=== PATIENT | female | born 1935 | race Caucasian/White ===

== ENCOUNTER 2019-06-24 13:08 | Inpatient (IN) ==
[2019-06-24] MEDS ORDERED: SODIUM CHLORIDE 0.9% 500 ML IV SCH (13:30)
--- NOTE | 2019-06-24 13:38 | Emergency Department Note ---
Impression & Plan Syncope, Acute UTI, Closed rib fracture, Pleural effusion ED Provider Note NAME: JONATHAN LYNN AGE: 83 SEX: F : 1935 ARRIVES VIA: Ambulance INFORMANT: Patient, ED PROVIDER(S): Hernan Bell DO CHIEF COMPLAINT: Neck pain, weak and falls HPI: Patient is an 83-year-old female that presents the ER for progressive weakness which has been going on since August. She had a fall back in mid May and since then has been having right lower rib pain. She notes she fell this past Monday and Monday. She has been extremely weak. She passed out during 2 of these falls. She denies any chest pain but admits to pain with taking a deep breath on the right lower ribs. Patient also complains of persistent neck pain which has been present since the fall on Monday. She also complains of a headache as well. Denies any change in vision or focal weakness in the arms or legs. No other exacerbating or remitting factors. ROS: See above HPI for pertinent positives & negatives. A total of 10 systems reviewed and were otherwise negative. PAST MEDICAL HISTORY:See Below PAST SURGICAL HISTORY:See Below FAMILY HISTORY:See Below SOCIAL HISTORY:See Below HOME MEDICATIONS:See Below ALLERGIES:See Below VITALS:See Below PHYSICAL EXAMINATION: GENERAL: GENERAL: Sitting up in bed, disheveled, cachectic HEAD: normal cephalic, atraumatic EYE EXAM: normal conjunctiva, PERRL and EOM's grossly intact OROPHARYNX: no exudate, no erythema, lips, buccal mucosa, and tongue normal and mucous membranes are moist EARS: TMs clear b/l NECK: midline tenderness CHEST: stable to compression anteriorly and posteriorly LUNGS: clear to auscultation. Normal chest wall mechanics CHEST: R lower chest wall pain HEART: S1 normal and S2 normal ABDOMEN: abdomen soft, non-tender, normo-active bowel sounds, no masses, no rebound or guarding. PELVIS: stable to compression anteriorly and posteriorly BACK: Back is symmetrical on inspection and there is no deformity, no midline tenderness, no CVA tenderness. UPPER EXTREMITIES: full active and passive range of motion of all joints without tenderness to palpation LOWER EXTREMITIES: full active and passive range of motion of all joints without tenderness to palpation NEURO EXAM: Normal sensorium, cranial nerves II-XII grossly intact, normal speech, no gross weakness of arms, no gross weakness of legs. GCS: 15. MEDICAL DECISION MAKING: Patient is an 83-year-old female who presents the ER for syncopal episodes associated with headache and neck pain associate with persistent right-sided rib pain. IV was established blood work was obtained and showed a mild leukocytosis. Hemoglobin 11.1 consistent with previous. BMP with a creatinine 1.4. Magnesium slightly low at 1.7. LFTs bilirubin troponin was negative. TSH unremarkable. D-dimer was elevated. UA does suggest a UTI although slightly contaminated with epithelial cells. Patient was given IV fluids and IV Rocephin. She was also given a dose of IV morphine. CT Angio of the chest shows rib fractures with a pleural effusion. Patient was updated bedside. CT of the head and neck was negative. She was discussed with the hospitalist for admission for syncope associated with rib fractures and weakness. Triage Nursing notes reviewed. Prior medical records reviewed Vital Signs: reviewed and remarkable for hypertension Differential diagnosis: Differential diagnosis includes etiologies such as vasovagal event, infection, hypoglycemia, electrolyte abnormalities, cardiac sources, intracerebral event, toxicologic, neurologic, as well as others were entertained. ER treatment provided: See below Diagnostics interpreted by me: ECG: Sinus rhythm rate of 72 Normal axis PACs present Normal QTC T wave flattening in aVL Cardiac Monitoring: Sinus rhythm rate 81 Laboratory studies: As stated above and show below. Imaging studies: CT of the head and cervical spine showed no acute fractures. CT angios the chest shows rib fractures with pleural effusion. Consultation(s): Discussed with Dr. 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 Beliefs That Will Affect Care: None marital status: Current Living Situation: Alone current occupational status: retired Other Information That Helps Us Care for You: No Feels Safe at Home: Yes Safety Concerns: Feels Safe At This Time Smoking Status: Never smoker Second Hand Exposure: No ; Hx Alcohol Use: No Hx Substance Use: No Childhood Exposure to Second-Hand Smoke: No Diet Comment: regular caffeine: No during the past year weight has: remained stable Dental Care, Regularly: Yes Physical Activity Frequency: 1-2 Times per Week Seatbelt Use: always Sunscreen Use: Yes Allergies Allergies Allergy/AdvReac Type Severity Reaction Status Date / Time atorvastatin Allergy muscle Verified 06/24/19 14:24 aches. sulfamethoxazole AdvReac Intermediate Rash Verified 06/24/19 14:24 [From Bactrim] trimethoprim [From Bactrim] AdvReac Intermediate Rash Verified 06/24/19 14:24 Actonel TABS Allergy Unknown Unknown Uncoded 06/24/19 14:24 Bactrim Allergy Unknown Unknown Uncoded 06/24/19 14:24 Evista TABS Allergy Unknown Unknown Uncoded 06/24/19 14:24 traMADol HCl TABS AdvReac Unknown N/V Uncoded 06/24/19 14:24 Home Meds Home Medications Medication Instructions Recorded Confirmed multivitamin 1 cap PO QAM 01/05/18 06/24/19 omega-3 acid ethyl esters 1 gram 1 cap PO BID cap 09/06/18 06/24/19 capsule cholecalciferol (vitamin D3) 25 2,000 units PO WEEKLY cap 02/18/19 06/24/19 mcg (1,000 unit) capsule cyanocobalamin (vitamin B-12) 500 500 mcg PO 2XWK tab 04/16/19 06/24/19 mcg tablet [id number] acid-lutein 2 tab PO AMPM 06/17/19 06/24/19 [Essential Woman 50+] Previous Rx's Medication Instructions Recorded levothyroxine 75 mcg tablet 75 mcg PO QAM #90 tab 03/26/19 diclofenac sodium 1 % topical gel 2 gm TOP QID #100 gm 04/02/19 lisinopril 20 1 tab PO QAM #30 tab 04/09/19 mg-hydrochlorothiazide 25 mg tablet escitalopram oxalate 10 mg tablet 10 mg PO DAILY #90 tab 04/30/19 metformin 500 mg tablet 500 mg PO BID #180 tab 04/30/19 Results & Data (ED) Vital Signs Vital Signs - 24 hr 06/24/19 13:14 06/24/19 13:18 06/24/19 13:20 Temperature Temperature Source Pulse Rate 74 77 76 Pulse Rate from SpO2 Sensor 77 79 76 Pulse Rhythm Pulse Strength Respiratory Rate 14 19 15 Respiratory Effort / Characteristics Respiratory Depth Respiratory Pattern Blood Pressure 155/70 H Blood Pressure Mean 103 Blood Pressure Position Pulse Oximetry 94 94 95 Oxygen Delivery Method Sepsis Recent Fever Within 48 Hours Sepsis New/Unexplained Change in Mental Status Sepsis Action Taken by Nursing 06/24/19 13:25 06/24/19 13:30 06/24/19 13:40 Temperature 36.8 C Temperature Source Oral Pulse Rate 74 74 70 Pulse Rate from SpO2 Sensor 75 72 Pulse Rhythm Regular Pulse Strength Normal Respiratory Rate 20 15 24 Respiratory Effort / Characteristics Non-Labored Spontaneous Respiratory Depth Normal Respiratory Pattern Regular Blood Pressure 155/70 H Blood Pressure Mean 98 Blood Pressure Position Sitting Pulse Oximetry 98 95 95 Oxygen Delivery Method Room Air Room Air Sepsis Recent Fever Within 48 Hours No Sepsis New/Unexplained Change in Mental Status No Sepsis Action Taken by Nursing No Action Required 06/24/19 13:50 06/24/19 14:01 06/24/19 14:02 Temperature Temperature Source Pulse Rate 77 71 76 Pulse Rate from SpO2 Sensor 72 74 Pulse Rhythm Pulse Strength Respiratory Rate 21 14 15 Respiratory Effort / Characteristics Respiratory Depth Respiratory Pattern Blood Pressure 146/64 H Blood Pressure Mean 117 Blood Pressure Position Pulse Oximetry 94 94 Oxygen Delivery Method Sepsis Recent Fever Within 48 Hours Sepsis New/Unexplained Change in Mental Status Sepsis Action Taken by Nursing 06/24/19 14:10 06/24/19 14:20 06/24/19 14:30 Temperature Temperature Source Pulse Rate 74 74 73 Pulse Rate from SpO2 Sensor 71 76 77 Pulse Rhythm Pulse Strength Respiratory Rate 15 15 17 Respiratory Effort / Characteristics Respiratory Depth Respiratory Pattern Blood Pressure Blood Pressure Mean Blood Pressure Position Pulse Oximetry 94 94 94 Oxygen Delivery Method Sepsis Recent Fever Within 48 Hours Sepsis New/Unexplained Change in Mental Status Sepsis Action Taken by Nursing 06/24/19 14:40 06/24/19 14:50 06/24/19 15:00 Temperature Temperature Source Pulse Rate 72 79 73 Pulse Rate from SpO2 Sensor 73 77 75 Pulse Rhythm Pulse Strength Respiratory Rate 17 20 16 Respiratory Effort / Characteristics Respiratory Depth Respiratory Pattern Blood Pressure Blood Pressure Mean Blood Pressure Position Pulse Oximetry 96 96 96 Oxygen Delivery Method Sepsis Recent Fever Within 48 Hours Sepsis New/Unexplained Change in Mental Status Sepsis Action Taken by Nursing 06/24/19 15:17 06/24/19 15:20 06/24/19 15:30 Temperature Temperature Source Pulse Rate 81 75 80 Pulse Rate from SpO2 Sensor 81 82 80 Pulse Rhythm Pulse Strength Respiratory Rate 18 15 18 Respiratory Effort / Characteristics Respiratory Depth Respiratory Pattern Blood Pressure Blood Pressure Mean Blood Pressure Position Pulse Oximetry 95 94 95 Oxygen Delivery Method Sepsis Recent Fever Within 48 Hours Sepsis New/Unexplained Change in Mental Status Sepsis Action Taken by Nursing 06/24/19 15:31 06/24/19 15:47 06/24/19 15:50 Temperature Temperature Source Pulse Rate 79 82 73 Pulse Rate from SpO2 Sensor 74 81 73 Pulse Rhythm Pulse Strength Respiratory Rate 21 22 16 Respiratory Effort / Characteristics Respiratory Depth Respiratory Pattern Blood Pressure 152/66 H Blood Pressure Mean 101 Blood Pressure Position Pulse Oximetry 96 95 96 Oxygen Delivery Method Sepsis Recent Fever Within 48 Hours Sepsis New/Unexplained Change in Mental Status Sepsis Action Taken by Nursing Laboratory Data Result diagrams: 06/24/19 13:20 06/24/19 13:20 Lab Results 06/24/19 06/24/19 06/24/19 Range/Units 13: 13: 13:20 WBC 12.08 H (4.8-10.8) K/uL RBC 3.43 L (4.2-5.4) M/uL Hgb 11.1 L (12.0-16.0) g/dL Hct 32.8 L (37-47) % MCV 95.6 (80-100) fL MCH 32.4 (25-34) pg MCHC 33.8 (32-36) g/dL RDW Std Deviation 46.2 (36.4-46.3) fL RDW Coeff of Frances 13.2 (11.5-14.5) % Plt Count 679 H (130-400) K/uL MPV 8.6 (7.4-10.4) fL Immature Gran % (Auto) 0.2 % Neut % (Auto) 69.5 % Lymph % (Auto) 16.5 % [place] % (Auto) 12.9 % Eos % (Auto) 0.7 % Baso % (Auto) 0.2 % Immature Gran # (Auto) 0.03 H (0.00-0.02) K/uL Neut # (Auto) 8.38 H (1.4-6.5) K/uL Lymph # (Auto) 1.99 (1.2-3.4) K/uL [place] # (Auto) 1.56 H (0.11-0.59) K/uL Eos # (Auto) 0.09 (0-0.5) K/uL Baso # (Auto) 0.03 (0-0.2) K/uL PT 11.4 (9.0-12.0) Seconds INR 1.1 (0.9-1.1) D-Dimer 1200 H* (0-500) ug/L FEU Sodium 135 L (136-145) mmol/L Potassium 3.6 (3.5-5.1) mmol/L Chloride 99 (98-107) mmol/L Carbon Dioxide 28 (21-32) mmol/L Anion Gap 8.0 (3-11) BUN 35 H (7-18) mg/dl Creatinine 1.40 H (0.6-1.2) mg/dl Est Cr Clr Drug Dosing Not Reportable Est GFR ( Amer) 39.6 Est GFR (Non-Af Amer) 34.2 BUN/Creatinine Ratio 24.8 H (10-20) Glucose 130 H (70-99) mg/dl Calcium 9.7 (8.5-10.1) mg/dl Magnesium 1.7 L (1.8-2.4) mg/dl Total Bilirubin 0.4 (0.2-1) mg/dl AST 23 (15-37) U/L ALT 22 (12-78) U/L Alkaline Phosphatase 88 (45-117) U/L Total Creatine Kinase 66 (26-192) U/L Troponin I < 0.015 (0-0.045) ng/ml Total Protein 7.5 (6.4-8.2) gm/dl Albumin 3.0 L (3.4-5.0) gm/dl Globulin 4.5 H (2.5-4.0) gm/dl Albumin/Globulin Ratio 0.7 L (0.9-2) TSH 0.900 (0.300-4.500) uIu/ml Urine Color Urine Appearance (Clear) Urine pH (4.5-7.5) Ur Specific [place] (1.000-1.030) Urine Protein (Negative) Urine Glucose (UA) (Negative) Urine Ketones (Negative) Urine Blood (Negative) Urine Nitrite (Negative) Urine Bilirubin (Negative) Urine Urobilinogen (Negative) Ur Leukocyte Esterase (Negative) Urine WBC (Auto) (0-5) /hpf Urine RBC (Auto) (0-4) /hpf U Hyaline Cast (Auto) (0-5) /lpf U Epithel Cells (Auto) (0-5) /lpf Urine Bacteria (Auto) (Negative) 06/24/19 Range/Units 15:50 WBC (4.8-10.8) K/uL RBC (4.2-5.4) M/uL Hgb (12.0-16.0) g/dL Hct (37-47) % MCV (80-100) fL MCH (25-34) pg MCHC (32-36) g/dL RDW Std Deviation (36.4-46.3) fL RDW Coeff of Rfances (11.5-14.5) % Plt Count (130-400) K/uL MPV (7.4-10.4) fL Immature Gran % (Auto) % Neut % (Auto) % Lymph % (Auto) % [place] % (Auto) % Eos % (Auto) % Baso % (Auto) % Immature Gran # (Auto) (0.00-0.02) K/uL Neut # (Auto) (1.4-6.5) K/uL Lymph # (Auto) (1.2-3.4) K/uL [place] # (Auto) (0.11-0.59) K/uL Eos # (Auto) (0-0.5) K/uL Baso # (Auto) (0-0.2) K/uL PT (9.0-12.0) Seconds INR (0.9-1.1) D-Dimer (0-500) ug/L FEU Sodium (136-145) mmol/L Potassium (3.5-5.1) mmol/L Chloride (98-107) mmol/L Carbon Dioxide (21-32) mmol/L Anion Gap (3-11) BUN (7-18) mg/dl Creatinine (0.6-1.2) mg/dl Est Cr Clr Drug Dosing Est GFR ( Amer) Est GFR (Non-Af Amer) BUN/Creatinine Ratio (10-20) Glucose (70-99) mg/dl Calcium (8.5-10.1) mg/dl Magnesium (1.8-2.4) mg/dl Total Bilirubin (0.2-1) mg/dl AST (15-37) U/L ALT (12-78) U/L Alkaline Phosphatase (45-117) U/L Total Creatine Kinase (26-192) U/L Troponin I (0-0.045) ng/ml Total Protein (6.4-8.2) gm/dl Albumin (3.4-5.0) gm/dl Globulin (2.5-4.0) gm/dl Albumin/Globulin Ratio (0.9-2) TSH (0.300-4.500) uIu/ml Urine Color Yellow Urine Appearance Clear (Clear) Urine pH 5.0 (4.5-7.5) Ur Specific [place] 1.022 (1.000-1.030) Urine Protein Negative (Negative) Urine Glucose (UA) Negative (Negative) Urine Ketones Trace H (Negative) Urine Blood Negative (Negative) Urine Nitrite Positive A (Negative) Urine Bilirubin Negative (Negative) Urine Urobilinogen Negative (Negative) Ur Leukocyte Esterase 1+ H (Negative) Urine WBC (Auto) 10-30 H (0-5) /hpf Urine RBC (Auto) 0-4 (0-4) /hpf U Hyaline Cast (Auto) 1-5 (0-5) /lpf U Epithel Cells (Auto) 20-30 H (0-5) /lpf Urine Bacteria (Auto) 4+ H (Negative) Administered Medications Ioversol (Optiray 320 125ml) 119 ml IV ONCE PRN PRN Reason: Interaction Checking Stop: 06/28/19 15:08 Last Admin: 06/24/19 15:09 Dose: 119 ml Documented by: [id number] Discontinued Medications Sodium Chloride (Nss) 500 mls @ 999 mls/hr IV .Q31M ROSY Stop: 06/24/19 14:00 Last Infusion: 06/24/19 14:40 Dose: 0 mls/hr Documented by: [id number] Admin: 06/24/19 13:43 Dose: 999 mls/hr Documented by: [id number] Discharge Plan Visit Data Chief Complaint: Weakness Stated Complaint: abd/ fall/neck pain ED Provider: Hernan Bell Discharge Problem: Syncope, Acute UTI, Closed rib fracture, Pleural effusion Forms Stand Alone Forms: [facility] [employer] Prescriptions Prescriptions: No Action diclofenac sodium 1 % gel 2 gm TOP QID Qty: 100 RF: 1 lisinopril-hydrochlorothiazide 20-25 mg tablet 1 tab PO QAM Qty: 30 RF: 0 omega-3 acid ethyl esters 1 gram capsule 1 cap PO BID RF: 0 cholecalciferol (vitamin D3) [Vitamin D3] 25 mcg (1,000 unit) capsule 2,000 units PO WEEKLY RF: 0 metformin 500 mg tablet 500 mg PO BID Qty: 180 RF: 3 escitalopram oxalate 10 mg tablet 10 mg PO DAILY Qty: 90 RF: 1 levothyroxine 75 mcg tablet 75 mcg PO QAM Qty: 90 RF: 1 multivitamin Capsule 1 cap PO QAM RF: 0 cyanocobalamin (vitamin B-12) 500 mcg tablet 500 mcg PO 2XWK RF: 0 Essential Woman 50+ 0.4-250 mg-mcg Tablet 2 tab PO AMPM RF: 0 Discharge Problem: Syncope Qualifiers: Syncope type: unspecified Qualified Code(s): R55 - Syncope and collapse Closed rib fracture Qualifiers: Encounter type: initial encounter Rib fracture type: multiple ribs Laterality: right Qualified Code(s): S22.41XA - Multiple fractures of ribs, right side, initial encounter for closed fracture
--- NOTE | 2019-06-24 13:56 | XRay Report ---
XR chest 1V portable HISTORY: weakness COMPARISON: Chest 06/17/2019. FINDINGS: No pneumothorax. No pleural effusions. The heart is normal in size. The left lung is essent ially clear. Linear densities within the right mid to lower lung zone favor subsegmental atelectasis. Eventration of right hemidiaphragm persists. Surgical clips within the right axilla. IMPRESSION: 1. Linear densities within the right mid to lower lung zone favor subsegmental atelectasis. 2. Chronic eventration of the right hemidiaphragm. ACT 112: Negative or not required by law. Electronically signed by: Ron Dooley M.D. 06/24/2019 1:55 PM
--- NOTE | 2019-06-24 14:04 | CT Scan Report ---
CT SCAN OF THE BRAIN WITHOUT IV CONTRAST CLINICAL HISTORY: Fall. COMPARISON STUDY: No priors. TECHNIQUE: Unenhanced axial CT scan of the brain is performed from the vertex to the skull base. A do se lowering technique was utilized adhering to the principles of ALARA. CT DOSE: 831.60 mGy.cm FINDINGS: Brain parenchyma: There are age-related involutional changes noting advanced confluent subcortical a nd periventricular microangiopathic change. There is no hemorrhage, mass effect, or evidence of acute territorial ischemia by CT criteria. A chronic lacunar infarct is noted in the right cerebellar anders sphere. Mota-white matter differentiation is preserved. No extra-axial fluid collection is seen. Ventricles, sulci, cisterns: Prominent secondary to involutional change. Intracranial vasculature: There is atherosclerotic calcification of the cavernous carotid arteries. Calvarium: Skeletal structures are osteopenic. No depressed calvarial fracture is identified. Sinuses and mastoids: The visualized paranasal sinuses are clear. The mastoid air cells are well pneu matized. Orbits: The bony orbits are grossly intact. There are bilateral ocular lens implants. IMPRESSION: There is no hemorrhage, mass effect, or evidence of acute territorial ischemia by CT hiren dodd. ACT 112: Negative or not required by law. Electronically signed by: Fahad Prater M.D. 06/24/2019 2:03 PM
--- NOTE | 2019-06-24 14:07 | Electrocardiogram Report ---
Test Reason : Blood Pressure : / mmHG Vent. Rate : 072 BPM Atrial Rate : 072 BPM P-R Int : 178 ms QRS Dur : 072 ms QT Int : 422 ms P-R-T Axes : 056 -16 070 degrees QTc Int : 462 ms Sinus rhythm with Premature atrial complexes in a pattern of bigeminy Nonspecific ST abnormality Abnormal ECG When compared with ECG of 17-JUN-2019 17:29, No significant change was found Confirmed by Cole Alonso ([id number]) on 06/24/2019 2:06:38 PM Referred By: Confirmed By:Cole Alonso
[2019-06-24 14:08] LABS: Basophils # (auto) 0.03 K/uL (0-0.2); Basophils % (auto) 0.2 %; Eosinophils # (auto) 0.09 K/uL (0-0.5); Eosinophils % (auto) 0.7 %; Hematocrit (blood only) 32.8 % (37-47); Hemoglobin 11.1 g/dL (12.0-16.0); Immature Granulocytes # (auto) 0.03 K/uL (0.00-0.02); Immature Granulocytes % (auto) 0.2 %; Lymphocytes # (auto) 1.99 K/uL (1.2-3.4); Lymphocytes % (auto) 16.5 %; Mean Corpuscular Hemoglobin 32.4 pg (25-34); Mean Corpuscular Hgb Conc 33.8 g/dL (32-36); Mean Corpuscular Volume 95.6 fL (80-100); Mean Platelet Volume 8.6 fL (7.4-10.4); Monocytes # (auto) 1.56 K/uL (0.11-0.59); Monocytes % (auto) 12.9 %; Neutrophils # (auto) 8.38 K/uL (1.4-6.5); Neutrophils % (auto) 69.5 %; Platelet Count 679 K/uL (130-400); RDW Coefficient of Variation 13.2 % (11.5-14.5); RDW Standard Deviation 46.2 fL (36.4-46.3); Red Blood Count 3.43 M/uL (4.2-5.4); White Blood Count 12.08 K/uL (4.8-10.8)
--- NOTE | 2019-06-24 14:08 | CT Scan Report ---
CT SCAN OF THE CERVICAL SPINE CLINICAL HISTORY: Fall. COMPARISON STUDY: No priors. TECHNIQUE: CT scan of the cervical spine is performed from the skull base to the upper thoracic spine . Images are reviewed in the axial, sagittal, and coronal planes. IV contrast was not administered fo r this examination. A dose lowering technique was utilized adhering to the principles of ALARA. FINDINGS: Skeletal structures: The skeletal structures are osteopenic. There is no evidence of fracture or subl uxation involving the cervical spine. Vertebral body height is maintained. There is minimal anterolis thesis at C7-T1. Alignment is otherwise preserved. Anterior osteophytes are seen throughout. The odon toid process and lateral masses are intact. The atlantoaxial articulation is preserved noting product jean degenerative change. The spinous processes appear intact. There is moderate to advanced multileve l cervical spondylosis. Uncovertebral and facet arthropathy contribute to neural foraminal stenosis a t most levels. Intervertebral discs: There is moderate to advanced disc space narrowing seen at all cervical levels. This is greatest at C3-C4, C5-C6, and C6-C7. Central canal: Posterior disc osteophyte complexes from C3-C4 through C6-C7 likely contribute to mult ilevel acquired compromise of the central canal. Soft tissues: The prevertebral and paraspinous soft tissues are within normal limits. There is athero sclerotic calcification of the carotid bulbs. Calvarium: The visualized calvarium at the skull base appears intact. Brain parenchyma: Partially visualized brain parenchyma the skull base is within normal limits. Sinuses and mastoids: There is mild mucosal thickening in the right sphenoid sinus. The mastoid air c ells are well pneumatized. Lung apices: Clear as visualized. IMPRESSION: 1. There is no evidence of fracture or subluxation involving the cervical spine. 2. Osteopenia and spondylotic change as above. ACT 112: Negative or not required by law. Electronically signed by: Fahad Prater M.D. 06/24/2019 2:07 PM
[2019-06-24 14:14] LABS: Alanine Aminotransferase 22 U/L (12-78); Aspartate Aminotransferase 23 U/L (15-37); BUN Creatinine Ratio 24.8 (10-20); Blood Urea Nitrogen 35 mg/dl (7-18); Calcium 9.7 mg/dl (8.5-10.1); Carbon Dioxide 28 mmol/L (21-32); Chloride 99 mmol/L (98-107); Est GFR (African American) 39.6; Est GFR (Non-African American) 34.2; Glucose 130 mg/dl (70-99); Magnesium 1.7 mg/dl (1.8-2.4); Potassium 3.6 mmol/L (3.5-5.1); Sodium 135 mmol/L (136-145)
[2019-06-24 14:25] LABS: Albumin Globulin Ratio 0.7 (0.9-2); Alkaline Phosphatase 88 U/L (45-117); Bilirubin,Total 0.4 mg/dl (0.2-1); Creatine Kinase 66 U/L (26-192); Globulin 4.5 gm/dl (2.5-4.0); INR 1.1 (0.9-1.1); Prothrombin Time 11.4 Seconds (9.0-12.0); Total Protein 7.5 gm/dl (6.4-8.2); Troponin I < 0.015 ng/ml (0-0.045)
[2019-06-24 14:30] LABS: D Dimer 1200 ug/L FEU (0-500)
[2019-06-24] MEDS ORDERED: OPTIRAY 320 125ml IV PRN (15:09)
--- NOTE | 2019-06-24 15:37 | CT Scan Report ---
CHEST CTA for PULMONARY ARTERIES CT DOSE: 234.94 mGy.cm HISTORY: Shortness of breath. TECHNIQUE: Multiaxial CT images of the chest were performed following the intravenous administration of contrast to evaluate the pulmonary arteries. Maximal intensity projection images were also obtaine d. A dose lowering technique was utilized adhering to the principles of ALARA. COMPARISON STUDY: PET CT 02/28/2018. FINDINGS: Normal caliber thoracic aorta with no evidence for dissection. No filling defects within th e pulmonary arteries to suggest pulmonary embolus. The heart is normal in size. There is a new small to moderate right pleural effusion. Limited views of the upper abdomen demonstrate a normal liver and spleen. Normal esophagus. No mediastinal or hilar lymphadenopathy. Prior left mastectomy. Stable baltazar cified lobular density within the right axilla measuring 2 cm. This is likely benign. There are surgi baltazar clips within the right axilla. Right lower lobe posterior densities favor compressive atelectasis from the pleural effusion. No pneumothorax. The central airways are patent. A few small linear densi ties within the left lung base also favor subsegmental atelectasis. No new or suspicious pulmonary no dules. Healing nondisplaced right posterior 10th and 11th rib fractures. Focal area of sclerosis with in the right lateral eighth rib best seen on image 55. This is also new from the prior study and coul d represent an additional healing fracture. IMPRESSION: 1. Interval development of a small to moderate right pleural effusion. 2. Healing nondisplaced right posterior 10th and 11th rib fractures. 3. No evidence for pulmonary embolus. 4. Focal sclerosis within the right lateral eighth rib. This is indeterminate but new from the prior study. This could represent an additional healing rib fracture. A metastatic focus is considered less likely but not entirely excluded. Consider [address] follow-up to evaluate for stability/reso lution. ACT 112: Negative or not required by law. Electronically signed by: Ron Dooley M.D. 06/24/2019 3:35 PM
[2019-06-24 16:02] LABS: Appearance Urine Clear (Clear); Bacteria Urine Automated 4+ (Negative); Bilirubin Urine Negative (Negative); Blood Urine Negative (Negative); Color Urine Yellow; Epithelial Cell Urine Auto 20-30 /lpf (0-5); Glucose Urine UA Negative (Negative); Ketones Urine Trace (Negative); Leukocyte Esterase Urine 1+ (Negative); Nitrite Urine Positive (Negative); Protein Urine Negative (Negative); RBC Urine Automated 0-4 /hpf (0-4); Specific Gravity Urine 1.022 (1.000-1.030); Urobilinogen Urine Negative (Negative)
[2019-06-24] MEDS ORDERED: ONDANSETRON INJ 2 MG/ML 2 ML VIAL IV STA (16:31)
[2019-06-24] MEDS ORDERED: cefTRIAXone SODIUM 1,000 MG/50 ML BAG IV STA (16:31)
--- NOTE | 2019-06-24 16:36 | History & Physical Report ---
Date of Service June 24, 2019 Assessment & Plan (1) Failure to thrive: Timeline of events from patient suggest precipitating factor of proximal muscle weakness without pain, although I question this somewhat after chart review and likely longer onset of symptoms related more to depression. Given history given of abrupt symptoms starting in March with proximal involvement and morning stiffness will get ESR to assess for PMR. Given severity of symptoms would consider a short course of steroids regardless of ESR but will start in AM to avoid insomnia. Prednisone may also help with her appetite regardless of etiology. Thrombocytosis with one sided pleural effusion concerning with metastatic malignancy in setting of more left breast cancer diagnosis in 2018 (see below) with poor follow up and no adjuvant chemo. CT chest with possible focal sclerosis in right lateral 8th rib more likely prior rib fracture given history rather than malignancy but could consider bone scan as outpatient. High likelihood of depression/anxiety component and recently started on Lexapro (see below). Consult dietary for nutrition guidance. (2) Syncope: x2 episodes on th/mon last week both with turning her head to the side. Suspect neurally-mediated reflex syncope. Patient reports correlation with starting gabapentin and these falls therefore will avoid this in the future. Will observe on telemetry for any arrhythmias. TTE to r/o structural heart dis ease. Given number of falls possibly on concussion playing a role - PT/OT evals. (3) Fear of falling: PT/OT evals. Possible need for inpatient rehab as she lives alone. (4) Recurrent falls: Initial fall appears to be related to muscle weakness although on exam her strength is actually intact. Since then her two most recent falls more concerning for syncope (see above). (5) Neck pain: Most likely MSK from recent falls. CT cervical spine reassuring. 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 (6) Myalgia: Generalized. CPK WNL. ESR pending. Mostly proximal. Does not appear to be joint related. Avoid gabapentin given association with falls. Trial of prednisone as above for possible PMR. (7) Pleural effusion: Concerning for malignant effusion given recent history of breast cancer and loss of appetite and weight loss. However she has also fallen multiple times and this may be a hemothorax. Consider pulmonology referral if patient amenable to diagnostic thoracocentesis in AM (she did not want this on admission). Since she is not hypoxic there would be unlikely any therapeutic benefit from draining this but could be done for diagnostic purposes. (8) RUQ abdominal pain: Pain on palpation definitively under her ribs therefore suspect abdominal pathology causing this not just her pleural effusion or rib fractures. No contusions noted on exam. LFTs unremarkable. Ideally would get CT A/P with contrast but since she has already had contrast today with eGFR 34.2 I do not feel this is urgent at this time. Consider CT A/P with contrast if persistent RUQ pain. (9) Closed rib fracture: Non-acute. Acetaminophen 1000mg TID. Given N&V with opiates will avoid current (10) Acute UTI: Suspect asymptomatic bacteruria rather than true UTI but given elevated WBC and unclear etiology of above complaints will continue ceftriaxone. (11) Depression: Continue Lexapro 10mg PO daily. Since this was increased in April could consider increasing to 20mg if limited response to prednisone. As per wellness visit she has been struggling since February 2018 with loss of her [id number] and several years earlier her son. (12) Hypothyroidism: TSH 0.9. Continue levothyroxine 75 mcg PO daily. (13) Hypertension: Continue lisinopril 20mg PO daily. Will d/c HCTZ given reduced renal function and start amlodipine 5mg PO daily. (14) Carcinoma of central portion of left breast in female, estrogen receptor negative: s/p mastectomy in January 2018. She was advised to have adjuvant chemotherapy but declined. She was also ordered a follow up PET scan but I see no results of that. Her (15) Hypomagnesemia: Slow-Mg 128 mg BID (16) CKD (chronic kidney disease) stage 3, GFR 30-59 ml/min: Avoid NSAIDs. Stop HCTZ as above and switch to amlodipine for BP. (17) DVT prophylaxis: Heparin 5000 units Q12H Admission and Anticipated Discharge Date Admission Date: 06/24/2019 PT/OT evals History of Present Illness Chief Complaint: Progressive weakness, generalized pain Primary Care Provider: DO Key Mancuso Tristan is an 83 year old female with history of right and more recently left sided breast cancer presents to the ER with progressive weakness and falling. She reports her symptoms started in March initially with proximal muscle weakness in her thighs as she felt she was unable to get up from her chair. She reported no problems with weakness prior to this and came on relatively abruptly. Although prior chart review of both PCP and oncology notes appear to suggest her pain and fatigue have been relatively longstanding. Her first fall she reports was in April while waiting in line at a restaurant she tried to steady herself by placing her hand on something which subsequently moved and she fell down. She fell again in May after falling back from opening the dryer which was described in her PCP visit the same month. She was seen in the ER earlier this month for that May fall but persistent pain and was discharged with advice to take oxycodone and Percocet that she already had at home for pain. Unfortunately these were not effective and she was prescribed gabapentin by her PCP last week. She thinks this caused her to be more unsteady and caused her to lose consciousness on two occasions last week on and Monday after taking the medication. She remembers going down and waking up on the floor and was able to call her friend to help her back up. She comes to the ER today on the advice of her friend. Allergies Allergy/AdvReac Type Severity Reaction Status Date / Time atorvastatin Allergy muscle Verified 06/24/19 14:24 aches. raloxifene [From Evista] Allergy Unknown Verified 06/24/19 23:09 risedronate sodium Allergy Unknown Verified 06/24/19 23:09 [From Actonel] sulfamethoxazole AdvReac Intermediate Rash Verified 06/24/19 14:24 [From Bactrim] trimethoprim [From Bactrim] AdvReac Intermediate Rash Verified 06/24/19 14:24 tramadol AdvReac Nausea Verified 06/24/19 23:09 Home Medications Home Medications Medication Instructions Recorded Confirmed Type multivitamin 1 cap PO QAM 01/05/18 06/24/19 History omega-3 acid ethyl esters 1 gram 1 cap PO BID cap 09/06/18 06/24/19 History capsule cholecalciferol (vitamin D3) 25 2,000 units PO WEEKLY cap 02/18/19 06/24/19 History mcg (1,000 unit) capsule levothyroxine 75 mcg tablet 75 mcg PO QAM #90 tab 03/26/19 06/24/19 Rx diclofenac sodium 1 % topical gel 2 gm TOP QID #100 gm 04/02/19 06/24/19 Rx lisinopril 20 1 tab PO QAM #30 tab 04/09/19 06/24/19 Rx mg-hydrochlorothiazide 25 mg tablet cyanocobalamin (vitamin B-12) 500 500 mcg PO 2XWK tab 04/16/19 06/24/19 History mcg tablet escitalopram oxalate 10 mg tablet 10 mg PO DAILY #90 tab 04/30/19 06/24/19 Rx metformin 500 mg tablet 500 mg PO BID #180 tab 04/30/19 06/24/19 Rx gr-pxs-hbjtm acid-lutein 2 tab PO AMPM 06/17/19 06/24/19 History [Essential Woman 50+] Past Med/Surg History Social History Preferred Language: [place] Communication Ability: Effective Visual Impairment: No Limitations Hearing Ability: Normal Dog Warden Required: No Beliefs That Will Affect Care: None marital status: Current Living Situation: Alone current occupational status: retired Other Information That Helps Us Care for You: No Feels Safe at Home: Yes Safety Concerns: Feels Safe At This Time Smoking Status: Never smoker Second Hand Exposure: No ; Hx Alcohol Use: No Hx Substance Use: No Childhood Exposure to Second-Hand Smoke: No Diet Comment: regular caffeine: No during the past year weight has: remained stable Dental Care, Regularly: Yes Physical Activity Frequency: 1-2 Times per Week Seatbelt Use: always Sunscreen Use: Yes Review of Systems Review of Systems: All systems reviewed & are unremarkable except as noted in HPI & below Physical Exam Constitutional: + frail appearing; + not well nourished and no acute distress Eyes: + anicteric sclerae; normal pupil size ENMT: external ear and nose normal, oropharynx normal Neck: normal visual inspection and trachea midline Thyroid: no thyromegaly Respiratory: normal respiratory effort; no respiratory distress Auscult ation: + diminished lung sounds (right sided); no crackles, no rales and no wheezes Cardiovascular: Rate/Rhythm: regular rate and regular rhythm Heart Sounds: no murmur Vessels: no JVD Extremities: normal capillary refill; no calf tenderness and no pedal edema Gastrointestinal (Abdomen): normal bowel sounds, soft, nontender, no hepatosplenomegaly Musculoskeletal: no cyanosis or clubbing, extremities motor strength 5/5 Skin: no rashes, warm and dry Neurologic: moves all extremities and awake; no focal motor deficits and not confused Speech / Cognition: normal speech Motor/Sensory: no sensory deficit Psychiatric: Orientation: alert and oriented x 3 Affect: + depressed affect and + anxious affect Mood: + depressed mood Thought Process: clear/coherent thought process Genitourinary: no CVA tenderness Lymphatic: no cervical or axillary lymphadenopathy Results & Data Results & Data ([facility]) Vital Signs (Past 12 Hours) Vital Signs Temp Pulse Resp BP Pulse Ox 06/24/19 15:50 73 16 96 06/24/19 15:47 82 22 95 06/24/19 15:31 79 21 152/66 H 96 06/24/19 15:30 80 18 95 06/24/19 15:20 75 15 94 06/24/19 15:17 81 18 95 06/24/19 15:00 73 16 96 06/24/19 14:50 79 20 96 06/24/19 14:40 72 17 96 06/24/19 14:30 73 17 94 06/24/19 14:20 74 15 94 06/24/19 14:10 74 15 94 06/24/19 14:02 76 15 146/64 H 94 06/24/19 14:01 71 14 06/24/19 13:50 77 21 94 06/24/19 13:40 70 24 95 06/24/19 13:30 74 15 95 06/24/19 13:25 36.8 C 74 20 155/70 H 98 06/24/19 13:20 76 15 95 06/24/19 13:18 77 19 94 06/24/19 13:14 74 14 155/70 H 94 Diagnostic Findings CHEST CTA for PULMONARY ARTERIES IMPRESSION: 1. Interval development of a small to moderate right pleural effusion. 2. Healing nondisplaced right posterior 10th and 11th rib fractures. 3. No evidence for pulmonary embolus. 4. Focal sclerosis within the right lateral eighth rib. This is indeterminate but new from the prior study. This could represent an additional healing rib fracture. A metastatic focus is considered less likely but not entirely excluded. Consider [address] follow-up to evaluate for stabil ity/resolution. CT SCAN OF THE BRAIN WITHOUT IV CONTRAST IMPRESSION: There is no hemorrhage, mass effect, or evidence of acute territorial ischemia by CT criteria. XR chest 1V portable IMPRESSION: 1. Linear densities within the right mid to lower lung zone favor subsegmental atelectasis. 2. Chronic eventration of the right hemidiaphragm. CT SCAN OF THE CERVICAL SPINE IMPRESSION: 1. There is no evidence of fracture or subluxation involving the cervical spine. 2. Osteopenia and spondylotic change as above. ECG Indication: chest pain Rate (beats per minute): 72 Rhythm: normal sinus Findings: + PAC (bigeminy); no acute ischemic change Comparison ECG Date: from (06/17/19) Change: no significant change Code Status & VTE Plan Code Status DNR/DNI as per patient wishes VTE Prophylaxis Plan VTE Prophylaxis will be ordered: Yes PG Care Time/CCT Total # of Minutes Spent Total Time Spent with Patient: Total time spent is greater than 50% in coordination of care (as documented) at patient's floor/unit and/or counseling patient: Coding Level of Care Code 47973 OBS Care - Level 3 Diagnoses Failure to thrive R62.7 Failure to thrive age range: in adult Syncope R55 Syncope type: unspecified Fear of falling F40.298 Recurrent falls R29.6 Neck pain M54.2 Myalgia M79.10 Pleural effusion J90 RUQ abdominal pain R10.11 Closed rib fracture S22.41XA Encounter type: initial encounter Laterality: right Rib fracture type: multiple ribs Acute UTI N39.0 Depression F32.9 Hypothyroidism E03.9 Hypertension I10 Hypertension type: unspecified Carcinoma of central portion of left breast in female, estrogen receptor negative C50.112; Z17.1 Hypomagnesemia E83.42 CKD (chronic kidney disease) stage 3, GFR 30-59 ml/min N18.3 DVT prophylaxis Z29.9 (1) Closed rib fracture Encounter type: initial encounter Laterality: right Rib fracture type: multiple ribs Qualified Code(s): S22.41XA - Multiple fractures of ribs, right side, initial encounter for closed fracture (2) Failure to thrive Failure to thrive age range: in adult Qualified Code(s): R62.7 - Adult failure to thrive (3) Syncope Syncope type: unspecified Qualified Code(s): R55 - Syncope and collapse (4) Hypertension Hypertension type: unspecified Qualified Code(s): I10 - Essential (primary) hypertension
[2019-06-24] MEDS: MoRPHine SULFATE 4 MG/ML 1 ML CARP\\VIAL IV STA ×2 (16:48→17:03)
[2019-06-24] MEDS ORDERED: [UNRECOGNIZED DRUG - OTHER] PO SCH (17:43)
[2019-06-24] MEDS: HEPARIN SOD 5,000 UNIT/0.5 ML VIAL SQ SCH (20:28)
[2019-06-24] MEDS: ACETAMINOPHEN 500 MG TAB PO SCH (20:28)
[2019-06-24] MEDS ORDERED: AMLODIPINE BESYLATE 5 MG TAB PO ONE (21:11)
[2019-06-24] MEDS: MAGNESIUM CHLORIDE 64MG DELAYED REL TAB PO SCH (21:25)
[2019-06-24] MEDS ORDERED: ONDANSETRON INJ 2 MG/ML 2 ML VIAL IV PRN (23:16)
[2019-06-25] MEDS: LEVOTHYROXINE SODIUM 75 MCG TABLET PO SCH (05:52)
[2019-06-25 06:30] LABS: Basophils # (auto) 0.04 K/uL (0-0.2); Basophils % (auto) 0.4 %; Eosinophils # (auto) 0.16 K/uL (0-0.5); Eosinophils % (auto) 1.7 %; Hemoglobin 10.4 g/dL (12.0-16.0); Immature Granulocytes # (auto) 0.02 K/uL (0.00-0.02); Immature Granulocytes % (auto) 0.2 %; Lymphocytes # (auto) 2.01 K/uL (1.2-3.4); Lymphocytes % (auto) 20.9 %; Mean Corpuscular Hemoglobin 31.2 pg (25-34); Mean Corpuscular Hgb Conc 32.5 g/dL (32-36); Mean Corpuscular Volume 96.1 fL (80-100); Mean Platelet Volume 8.6 fL (7.4-10.4); Monocytes % (auto) 14.5 %; Neutrophils % (auto) 62.3 %; Platelet Count 614 K/uL (130-400); RDW Coefficient of Variation 13.3 % (11.5-14.5); RDW Standard Deviation 46.7 fL (36.4-46.3); Red Blood Count 3.33 M/uL (4.2-5.4); White Blood Count 9.63 K/uL (4.8-10.8)
[2019-06-25 07:16] LABS: BUN Creatinine Ratio 25.8 (10-20); Blood Urea Nitrogen 35 mg/dl (7-18); Calcium 9.9 mg/dl (8.5-10.1); Carbon Dioxide 27 mmol/L (21-32); Chloride 103 mmol/L (98-107); Est GFR (African American) 41.8; Glucose 85 mg/dl (70-99); Magnesium 1.7 mg/dl (1.8-2.4); Potassium 3.8 mmol/L (3.5-5.1); Sodium 135 mmol/L (136-145)
[2019-06-25 07:17] LABS: Phosphorus 4.9 mg/dl (2.5-4.9)
[2019-06-25] MEDS: ACETAMINOPHEN 500 MG TAB PO SCH ×3 (07:41→20:59)
[2019-06-25] MEDS: predniSONE 5 MG TAB PO SCH (07:41)
[2019-06-25] MEDS: lisinopriL 20 MG TAB PO SCH (07:42)
[2019-06-25] MEDS: MULTIVITAMIN TAB PO SCH (07:42)
[2019-06-25] MEDS: AMLODIPINE BESYLATE 5 MG TAB PO SCH (07:43)
[2019-06-25] MEDS: MAGNESIUM CHLORIDE 64MG DELAYED REL TAB PO SCH ×2 (07:43→20:59)
[2019-06-25] MEDS: ESCITALOPRAM OXALATE 10 MG TAB PO SCH (07:43)
[2019-06-25] MEDS: HEPARIN SOD 5,000 UNIT/0.5 ML VIAL SQ SCH ×2 (07:45→20:59)
[2019-06-25] MEDS ORDERED: PERFLUTREN LIPID MICROSPHERE (DEFINITY) IV ONE (09:30)
--- NOTE | 2019-06-25 15:16 | XCELERA ---
[id number] \\[email or web address]\[id number]_[id number]
[2019-06-25] MEDS ORDERED: bisacodyL 10 MG SUPP PR PRN (16:14)
[2019-06-25] MEDS ORDERED: POLYETHYLENE (MIRALAX) 17 GM PACK PO PRN (16:14)
--- NOTE | 2019-06-25 16:23 | Hospitalist Progress Note ---
Date of Service June 25, 2019 Assessment & Plan (1) Failure to thrive: -improvement on steroids as well as aches and proximal weakness does all plead heavily to PMR -concern on malignancy as well - follow closely -High likelihood of depression/anxiety component and recently started on Lexapro (see below). --ongoing PT/OT and chief wharfinger support -continue prednisone and follow for ongoing improvement - if she continues to show further improvement then would further corroborate that PMR is at least a significant culprit (2) Syncope: x2 episodes on thurs/fri last week both with turning her head to the side. Suspect neurally-mediated reflex syncope. Patient reports correlation with starting gabapentin and these falls therefore will avoid this in the future. no arrhythmia noted, suspect related to weakness (3) Fear of falling: PT/OT evals. did better than expected, but still considering SNF/rehab as an option (4) Recurrent falls: see above (5) Neck pain: Most likely MSK from recent falls. CT cervical spine reassuring. no complaints of this today (6) Myalgia: improvement on prednisone underscores high prob of PMR (7) Pleural effusion: Concerning for malignant effusion given recent history of breast cancer and loss of appetite and weight loss. However she has also fallen multiple times and this may be a hemothorax. Consider pulmonology referral if patient amenable to diagnostic thoracocentesis, otherwise continue to follow periodically - does not seem to be causing dyspnea (suspect fracture pain is culprit for pain with breathing) (8) RUQ abdominal pain: seems to be referred from ribs (9) Closed rib fracture: Non-acute. Acetaminophen 1000mg TID. lidocaine patch (10) Acute UTI: no urinary sx besides chronic incontinence --> stop abx. (11) Depression: Continue Lexapro 10mg PO daily. Since this was increased in April could consider increasing to 20mg, for now continue at home dosing (12) Hypothyroidism: TSH 0.9. Continue levothyroxine 75 mcg PO daily. (13) Hypertension: Continue lisinopril 20mg PO daily. Will d/c HCTZ given reduced renal function and start amlodipine 5mg PO daily. (14) Carcinoma of central portion of left breast in female, estrogen receptor negative: s/p mastectomy in January 2018. She was advised to have adjuvant chemotherapy but declined. She was also ordered a follow up PET scan but I see no results of that. certainly concern that this could be part of her failure to thrive as well (15) Hypomagnesemia: Slow-Mg 128 mg BID (16) CKD (chronic kidney disease) stage 3, GFR 30-59 ml/min: Avoid NSAIDs. Stopped HCTZ as above and switch to amlodipine for BP. (17) DVT prophylaxis: Heparin 5000 units Q12H (18) Discharge planning issues: ongoing PT/OT eval and treat - for now home w PT/OT vs rehab/SNF -- to be determined based on her ongoing progress Admission and Anticipated Discharge Date Admission Date: June 24, 2019 Subjective feeling stronger, less aching all over. still R chest pain/back pain with moving and deep breath. did better wtih PT than expected. no f/c/s no urinary frequency, urgency, no dysuria. (+) incontinence but this is chronic and ongoing no new no change. Review of Systems Review of Systems: All systems reviewed & are unremarkable except as noted in HPI & below Physical Exam Physical Exam: gen aao pleasant nad heent nc at mmm breathing unlabored no accessory muscles good effort skin no rashes no pallor or icterus. msk shows R ribs quite tender lower lateral - palpation reproduces pain fairly directly. Results & Data Results & Data ([facility]) Vital Signs (Past 12 Hours) Vital Signs Temp Pulse Pulse Resp BP Pulse Ox 06/25/19 15:32 98.4 F 77 16 107/55 L 91 06/25/19 15:09 77 06/25/19 11:58 98.1 F 70 18 117/61 91 06/25/19 07:37 98.1 F 67 16 124/77 91 PG Care Time/CCT Total # of Minutes Spent Total Time Spent with Patient: Total time spent is greater than 50% in coordination of care (as documented) at patient's floor/unit and/or counseling patient: Coding Level of Care Code 25545 Subseq Hosp Care Lvl 3 Diagnoses Failure to thrive R62.7 Failure to thrive age range: in adult Syncope R55 Syncope type: unspecified Fear of falling F40.298 Recurrent falls R29.6 Neck pain M54.2 Myalgia M79.10 Pleural effusion J90 RUQ abdominal pain R10.11 Closed rib fracture S22.41XA Encounter type: initial encounter Laterality: right Rib fracture type: multiple ribs Acute UTI N39.0 Depression F32.9 Hypothyroidism E03.9 Hypertension I10 Hypertension type: unspecified Carcinoma of central portion of left breast in female, estrogen receptor negative C50.112; Z17.1 Hypomagnesemia E83.42 CKD (chronic kidney disease) stage 3, GFR 30-59 ml/min N18.3 DVT prophylaxis Z29.9 Discharge planning issues Z02.9 (1) Failure to thrive Failure to thrive age range: in adult Qualified Code(s): R62.7 - Adult failure to thrive (2) Syncope Syncope type: unspecified Qualified Code(s): R55 - Syncope and collapse (3) Closed rib fracture Encounter type: initial encounter Laterality: right Rib fracture type: multiple ribs Qualified Code(s): S22.41XA - Multiple fractures of ribs, right side, initial encounter for closed fracture (4) Hypertension Hypertension type: unspecified Qualified Code(s): I10 - Essential (primary) hypertension
[2019-06-25] MEDS ORDERED: cefTRIAXone SODIUM 1,000 MG in DEXTROSE 5% 50 ML IV SCH (16:30)
[2019-06-25] MEDS: LIDOCAINE 5% 1 PATCH TD SCH (17:42)
[2019-06-26] MEDS: OXYCODONE HCL IR 5 MG TAB (IMMEDIATE RELEASE) PO PRN (05:11)
[2019-06-26] MEDS: LEVOTHYROXINE SODIUM 75 MCG TABLET PO SCH (05:11)
[2019-06-26] MEDS: LIDOCAINE 5% 1 PATCH TD SCH (08:09)
[2019-06-26] MEDS: ESCITALOPRAM OXALATE 10 MG TAB PO SCH (08:09)
[2019-06-26] MEDS: AMLODIPINE BESYLATE 5 MG TAB PO SCH (08:10)
[2019-06-26] MEDS: predniSONE 5 MG TAB PO SCH (08:10)
[2019-06-26] MEDS: lisinopriL 20 MG TAB PO SCH (08:10)
[2019-06-26] MEDS: MAGNESIUM CHLORIDE 64MG DELAYED REL TAB PO SCH ×2 (08:11→20:02)
[2019-06-26] MEDS: ACETAMINOPHEN 500 MG TAB PO SCH ×3 (08:11→20:02)
[2019-06-26] MEDS: HEPARIN SOD 5,000 UNIT/0.5 ML VIAL SQ SCH ×2 (08:12→20:02)
[2019-06-26] MEDS: MULTIVITAMIN TAB PO SCH (08:37)
--- NOTE | 2019-06-26 11:23 | Pulmonary Consultation ---
Date of Consultation June 26, 2019 Assessment & Plan (1) Pleural effusion, right: Patient with small to moderate right pleural effusion on CT scan Bedside ultrasound revealed adequate window for thoracentesis Patient consented to thoracentesis with Dr. Stewart Right thoracentesis performed without complication difficulty and approximately 400 mL of straw-colored pleural effusion was drained Patient tolerated procedure well Will await lab results. (2) Closed rib fracture: No evidence of hemothorax with procedure done at bedside Would instruct patient to splint with pillows but continue incentive spirometry to avoid further atelectasis The patient does have demonstrated atelectatic lung on the right with bedside ultrasound Increase activity and mobilize as tolerated Consider gabapentin for post fracture healing Encounter type: initial encounter Laterality: right Rib fracture type: multiple ribs Qualified Code(s): S22.41XA - Multiple fractures of ribs, right side, initial encounter for closed fracture (3) DVT prophylaxis: No contraindication for DVT prophylaxis chemically from a pulmonary perspective Further DVT prophylaxis per primary team Thank you very much for including us in the care of this patient. We will follow-up with the patient tomorrow and the most likely sign off if no complications Please refer to Dr. Stewart's addendum for further recommendations. Supervising Physician Co-Signing Physician Notes Seen and examined. Films reviewed. Agree with A/P as noted by LUIS ALFREDO Byrd. Thoracentesis completed. Await cytologic and microbiologic analysis of fluid. Will follow. History of Present Illness Requesting Physician: Julio Farrell DO Attending Physician: Julio Farrell DO History of Present Illness Attending: Dr. Stewart This is an 83-year-old female that lives alone at home. She has a past medical history of recurrent falls, closed rib fracture, recent breast cancer with last treatment in 2018, failure to thrive, history of colon cancer, chronic kidney disease stage III, macular degeneration, chronic anemia, thrombocytosis, history of basal cell carcinoma, hyperlipidemia, hypertension, GERD, diabetes mellitus type 2 on metformin, hypothyroidism. The patient was admitted on 06/24/2019 after a fall and was found to have closed rib fractures. Initial imaging revealed pleural effusion on the right. This is concerning as the patient has history of breast cancer as well as falls. We requested to evaluate for thoracentesis to rule out hemothorax or malignant effusion. Patient states that she has some shortness of breath but primarily her chief complaint is pain at the site of the rib fractures. She denies any prior history of pleural effusion or thoracentesis. She is oxygenating well on room air. She denies any cough or sputum production. She has no hemoptysis. She denies any fever or chills. She has no recent travel. She has not had any sick contacts. She currently does not have any family in the area. She does have some friends that offered support. The patient denies any prior history of tobacco abuse. She has no history of ethanol abuse. She has no history of illicit drug abuse. She denies any use of anticoagulants and does not appear to be on aspirin at home. She further denies any blood dyscrasias. Allergies Allergy/AdvReac Type Severity Reaction Status Date / Time atorvastatin Allergy muscle Verified 06/24/19 14:24 aches. raloxifene [From Evista] Allergy Unknown Verified 06/24/19 23:09 risedronate sodium Allergy Unknown Verified 06/24/19 23:09 [From Actonel] sulfamethoxazole AdvReac Intermediate Rash Verified 06/24/19 14:24 [From Bactrim] trimethoprim [From Bactrim] AdvReac Intermediate Rash Verified 06/24/19 14:24 tramadol AdvReac Nausea Verified 06/24/19 23:09 Home Medications Home Medications Medication Instructions Recorded Confirmed Type multivitamin 1 cap PO QAM 01/05/18 06/24/19 History omega-3 acid ethyl esters 1 gram 1 cap PO BID cap 09/06/18 06/24/19 History capsule cholecalciferol (vitamin D3) 25 2,000 units PO WEEKLY cap 02/18/19 06/24/19 History mcg (1,000 unit) capsule levothyroxine 75 mcg tablet 75 mcg PO QAM #90 tab 03/26/19 06/24/19 Rx diclofenac sodium 1 % topical gel 2 gm TOP QID #100 gm 04/02/19 06/24/19 Rx lisinopril 20 1 tab PO QAM #30 tab 04/09/19 06/24/19 Rx mg-hydrochlorothiazide 25 mg tablet cyanocobalamin (vitamin B-12) 500 500 mcg PO 2XWK tab 04/16/19 06/24/19 History mcg tablet escitalopram oxalate 10 mg tablet 10 mg PO DAILY #90 tab 04/30/19 06/24/19 Rx metformin 500 mg tablet 500 mg PO BID #180 tab 04/30/19 06/24/19 Rx ln-xfp-mietk acid-lutein 2 tab PO AMPM 06/17/19 06/24/19 History [Essential Woman 50+] Patient History Medical History Arthritis Breast cancer (Chronic) right in 1994 - s/p lumpectomy and XRT left in 2017 - s/p lumpectomy, re-excision, subsequent mastectomy Carcinoma of central portion of left breast in female, estrogen receptor negative Self detected left breast mass Status post core needle biopsy November 01, 2017 Invasive ductal carcinoma grade 2 Estrogen receptor negative, progesterone receptor negative, and HER-2/areli negative Status post lumpectomy and sentinel lymph node biopsy November 09, 2017 Invasive carcinoma no specific type Stage I B Chronic anemia (Chronic) Chronic back pain (Inactive) Colon cancer (Resolved) Surgery-1988 Depression Diabetes mellitus, type 2 (Chronic) GERD (gastroesophageal reflux disease) History of basal cell carcinoma History of colon cancer Hyperlipidemia Hypertension (Chronic) Hypothyroidism Lumbar degenerative disc disease Macular degeneration Urinary incontinence Surgical History History of basal cell carcinoma excision on face in 1983 History of bilateral cataract extraction History of bowel resection History of carpal tunnel surgery of right wrist History of cataract surgery History of cholecystectomy History of colon surgery History of lumpectomy (1998) RIGHT 1998 History of lumpectomy of left breast (10/2017) 11/09/17 History of toe surgery Hammer toe. History of tubal ligation S/P left mastectomy (01/15/18) Family History Sister , Breast Cancer Diabetes 1.5, managed as type 1 Hypertension Breast cancer Mother , age 71-enlarged heart Cardiac disorder Myocardial infarction Father , at 67 of heart attack Cardiac disorder Myocardial infarction Brother , of [place] age 82 No problems noted. Brother , at age 80 alcoholic complications Cardiac disorder Myocardial infarction Son , at age 54 pneumonia No problems noted. Daughter Diabetes 1.5, managed as type 1 Sister No problems noted. Sister No problems noted. Sister No problems noted. Sister No problems noted. Sister No problems noted. 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 Beliefs That Will Affect Care: None marital status: Single Current Living Situation: Alone current occupational status: retired Other Information That Helps Us Care for You: No Feels Safe at Home: Yes Safety Concerns: Feels Safe At This Time Smoking Status: Never smoker Second Hand Exposure: No ; Hx Alcohol Use: No Hx Substance Use: No Childhood Exposure to Second-Hand Smoke: No Diet Comment: regular caffeine: No during the past year weight has: remained stable Dental Care, Regularly: Yes Physical Activity Frequency: 1-2 Times per Week Seatbelt Use: always Sunscreen Use: Yes Review of Systems Review of Systems: All systems reviewed & are unremarkable except as noted in HPI & below Physical Exam Physical Exam: GENERAL : No acute distress EYES: No icterus, gaze conjugate NOSE: No evidence of epistaxis MOUTH: No lesions or candidiasis NECK: Supple LUNGS: CTA B/L, no wheezes, rales or rhonchi. Decreased breath sounds at the right base. No dyspnea with full sentences. No use of accessory muscles HEART: Regular, rate controlled ABDOMEN: Soft, NT, ND, BS Present EXTREMITIES: No LE edema, pedal pulses intact NEURO: A&OX3 Results & Data Results & Data ([facility]) Vital Signs (Past 12 Hours) Vital Signs Temp Pulse Resp BP Pulse Ox 06/26/19 07:12 36.7 C 71 16 131/61 91 Laboratory Results 06/25/19 05:46 06/25/19 05:46 INR 1.1 (0.9-1.1) 06/24/19 13:20 Diagnostic Findings CHEST CTA for PULMONARY ARTERIES CT DOSE: 234.94 mGy.cm HISTORY: Shortness of breath. TECHNIQUE: Multiaxial CT images of the chest were performed following the intravenous administration of contrast to evaluate the pulmonary arteries. Maximal intensity projection images were also obtained. A dose lowering technique was utilized adhering to the principles of ALARA. COMPARISON STUDY: PET CT 02/28/2018. FINDINGS: Normal caliber thoracic aorta with no evidence for dissection. No filling defects within the pulmonary arteries to suggest pulmonary embolus. The heart is normal in size. There is a new small to moderate right pleural effusi on. Limited views of the upper abdomen demonstrate a normal liver and spleen. Normal esophagus. No mediastinal or hilar lymphadenopathy. Prior left mastectomy. Stable calcified lobular density within the right axilla measuring 2 cm. This is likely benign. There are surgical clips within the right axilla. Right lower lobe posterior densities favor compressive atelectasis from the pleural effusion. No pneumothorax. The central airways are patent. A few small linear densities within the left lung base also favor subsegmental atelectasis. No new or suspicious pulmonary nodules. Healing nondisplaced right posterior 10th and 11th rib fractures. Focal area of sclerosis within the right lateral eighth rib best seen on image 55. This is also new from the prior study and could represent an additional healing fracture. IMPRESSION: 1. Interval development of a small to moderate right pleural effusion. 2. Healing nondisplaced right posterior 10th and 11th rib fractures. 3. No evidence for pulmonary embolus. 4. Focal sclerosis within the right lateral eighth rib. This is indeterminate but new from the prior study. This could represent an additional healing rib fracture. A metastatic focus is considered less likely but not entirely excluded. Consider [address] follow-up to evaluate for stability/resolution. Electronically signed by: Ron Dooley M.D. 06/24/2019 3:35 PM PG Care Time/CCT Total # of Minutes Spent Total Time Spent with Patient: Total time spent is greater than 50% in coordination of care (as documented) at patient's floor/unit and/or counseling patient: 40 minutes independent of any procedures Coding Level of Care Code 98220 Inpt Consult Level 4 Diagnoses Pleural effusion, right J90 Closed rib fracture S22.41XA Encounter type: initial encounter Laterality: right Rib fracture type: multiple ribs DVT prophylaxis Z29.9
--- NOTE | 2019-06-26 11:59 | XRay Report ---
XR chest 1V portable HISTORY: 83 years-old Female S/P R Thoracentesis STUDY in a patient with right pleural effusion COMPARISON: CTA of the chest and chest radiograph 06/24/2019 TECHNIQUE: Portable AP view of the chest FINDINGS: Cardiac silhouette is mildly enlarged. Calcified plaque of the thoracic aortic arch. Mild right hemid iaphragmatic elevation. Decreased size of the right pleural effusion status post thoracentesis. No po stprocedural pneumothorax identified. Linear right greater than left bibasilar opacities suggest atel ectasis. No overt pulmonary edema. Degenerative changes of the shoulders and spine. IMPRESSION: 1. Decreased size of the right pleural effusion status post thoracentesis. 2. No postprocedural pneumothorax. ACT 112: Negative or not required by law. The above report was generated using voice recognition software. It may contain grammatical, syntax o r spelling errors. Electronically signed by: Dexter Lorenzo M.D. 06/26/2019 11:58 AM
--- NOTE | 2019-06-26 12:03 | Procedure Note ---
Procedure Note Date of Service June 26, 2019 Procedure: Diagnostic therapeutic ultrasound-guided catheter thoracentesis Dolphin Trainer: Dr. Zack Stewart Indication: Pleural effusion Consent: Signed by patient and verified with timeout prior to procedure Anesthesia: 8 mL's 1% lidocaine without epinephrine local. Procedure: Consent was verified and timeout performed. Appropriate imaging studies were reviewed prior to the procedure. Patient was placed in a seated position and limited thoracic ultrasound was performed of the bilateral chest. See separate imaging. A small right-sided pleural effusion was identified with associated compressive atelectasis. A site appropriate for thoracentesis was marked. The skin was prepped and draped in normal sterile fashion. Lidocaine was used for local analgesia. Fluid was aspirated via the finder needle. A small skin sacha was made with the scalpel and the catheter over the needle apparatus was advanced over the rib into the pleural space. Using the syringe one-way valve system, a total of 400 mL's of serous fluid was removed. Procedure was terminated due to inability to withdraw any additional fluid. The catheter was removed and observed to be intact. A sterile dressing was applied. Post procedure chest x-ray was performed and independently reviewed at the bedside which demonstrated no evidence of pneumothorax with some linear atelectasis at the right lung base. Post procedure ultrasound demonstrated persistent lung sliding with trivial residual pleural fluid. Fluid was sent for cell count differential, Gram stain and culture, LDH, total protein, glucose, pH, and cytology. The patient tolerated the procedure well without obvious complication Coding CPT Codes Pulmonary/Thoracic - Pulmonary and Thoracic: 45838 Thoracentesis w imaging ([id number]) [facility] [place], [place] Procedure Codes (Charges) Pulmonary/Thoracic Procedure 1: Pulmonary and Thoracic: 32973 Thoracentesis w imaging
[2019-06-26 12:20] LABS: Total Protein Pleural Fluid 4.1 g/dl
[2019-06-26 13:24] LABS: Appearance Pleural Fluid CLOUDY; Color Pleural Fluid YELLOW; Neutrophils, Fluid 16 %; RBC Pleural Fluid (A) < 3000 /uL; Source Pleural Fluid RIGHT LUNG; WBC Pleural Fluid (A) 799 /uL
[2019-06-26 13:25] LABS: Eosinophils, Fluid 4 %
[2019-06-26 13:30] LABS: Lymphocytes, Fluid 74 %; Mono,Macrophage,Mesothelial 6 %
--- NOTE | 2019-06-26 14:56 | Hospitalist Progress Note ---
Date of Service June 26, 2019 Assessment & Plan (1) Pleural effusion: Concerning for malignant effusion given recent history of breast cancer and loss of appetite and weight loss thoracentesis on 06/25 with pulmonology 400cc out, appears exudative with pleural protein > 50% serum protein follow up cytology, no signs of infection as predominantly lymphocytes in cell count (2) Failure to thrive: -improvement on steroids as well as aches and proximal weakness does all plead heavily to PMR -concern on malignancy as well - follow closely on cytology results from thoracentesis -High likelihood of depression/anxiety component and recently started on Lexapro (see below). --ongoing PT/OT and youth ministry director support -continue prednisone and follow for ongoing improvement - if she continues to show further improvement then would further corroborate that PMR is at least a significant culprit (3) Syncope: x2 episodes on thurs/fri last week both with turning her head to the side. Suspect neurally-mediated reflex syncope. Patient reports correlation with starting gabapentin and these falls therefore will avoid this in the future. no arrhythmia noted, suspect related to weakness she is refusing rehab, but will ask her to reconsider, at high risk for falling, don't want her to suffer a fracture (4) Fear of falling: PT/OT evals. did better than expected, but still considering SNF/rehab as an option (5) Recurrent falls: see above (6) Neck pain: Most likely MSK from recent falls. CT cervical spine reassuring having pain today, does admit that overall better with steroids (7) Myalgia: improvement on prednisone underscores high prob of PMR (8) RUQ abdominal pain: seems to be referred from ribs (9) Closed rib fracture: Non-acute. Acetaminophen 1000mg TID. lidocaine patch CT does mention that a small focus of metastatic disease cannot be ruled out follow up on cytology from pleural fluid (10) Acute UTI: no urinary sx besides chronic incontinence --> stop abx. (11) Depression: Continue Lexapro 10mg PO daily. Since this was increased in April could consider increasing to 20mg, for now continue at home dosing (12) Hypothyroidism: TSH 0.9. Continue levothyroxine 75 mcg PO daily. (13) Hypertension: Continue lisinopril 20mg PO daily. Will d/c HCTZ given reduced renal function and start amlodipine 5mg PO daily. (14) Carcinoma of central portion of left breast in female, estrogen receptor negative: s/p mastectomy in January 2018. She was advised to have adjuvant chemotherapy but declined. She was also ordered a follow up PET scan but I see no results of that. certainly concern that this could be part of her failure to thrive as well (15) Hypomagnesemia: Slow-Mg 128 mg BID (16) CKD (chronic kidney disease) stage 3, GFR 30-59 ml/min: Avoid NSAIDs. Stopped HCTZ as above and switch to amlodipine for BP. (17) DVT prophylaxis: Heparin 5000 units Q12H (18) Discharge planning issues: ongoing PT/OT eval and treat - for now home w PT/OT vs rehab/SNF -- to be determined based on her ongoing progress Admission and Anticipated Discharge Date Admission Date: June 25, 2019 Subjective patient laying flat in bed, she says it hurts for her to sit up, pain in neck, posterior head, shoulders also, pain on right side of chest it hurts for her to take a deep breath we discussed the right sided pleural effusion, with her weight loss of 35 lbs and h/o breast cancer, would be concerned that this is malignant effusion d/w pulmonary, they performed thoracentesis at the bedside for 400mL, no blood pleural fluid protein > 50% serum protein, possible exudative, sent for cytology discussed in grand rounds, patient refusing rehab, will encourage this as she is very weak, no home support she is eating fairly well, says that her weight loss has been completely unintentional reviewed past records, her oncologist is Dr Mandujano, unsure if she ever had a follow up PET scan after mastectomy Review of Systems Review of Systems: All systems reviewed & are unremarkable except as noted in HPI & below Constitutional: + body aches (neck and shoulders) and + weight loss (35 lbs in the past year); no fever, no chills and no sweats Respiratory: + dyspnea on exertion and + pain on inspiration (right sided); no cough, no dyspnea, no hemoptysis and no wheezing Cardiovascular: no chest pain and no edema Gastrointestinal: no abdominal pain, no nausea, no vomiting, no constipation and no diarrhea/loose stools Genitourinary: no dysuria Musculoskeletal: + back pain, + neck pain, + joint pain and + myalgia Physical Exam Constitutional: well developed and + thin; no acute distress Eyes: PERRL, conjunctivae normal, anicteric sclerae ENMT: external ear and nose normal, oropharynx normal Neck: trachea midline, no thyromegaly Respiratory: normal respiratory effort; no respiratory distress and no cough Auscultation: lungs clear to auscultation bilaterally and + diminished lung sounds (right base); no rhonchi and no wheezes Cardiovascular: RRR, no murmur, no edema Gastrointestinal (Abdomen): normal bowel sounds, soft, nontender, no hepatosplenomegaly Musculoskeletal: Head/Neck/Chest: normocephalic and head atraumatic Extremities: extremities normal to inspection and + abnormal strength (generalized weakness) Skin: no rashes, warm and dry Neurologic: patellar DTR's 2+ bilat, sensation intact and PERRL, EOMI, accommodation nl, no face palsy, no dysarthria Psychiatric: A+Ox3, euthymic affect Lymphatic: no cervical or axillary lymphadenopathy Results & Data Results & Data ([facility]) Vital Signs (Past 12 Hours) Vital Signs Temp Pulse Resp BP Pulse Ox 06/26/19 07:12 36.7 C 71 16 131/61 91 Laboratory Results Laboratory Results - last 24 hr 06/26/19 06/26/19 06/26/19 11:50 11:50 11:50 Fluid Neutrophils % 16 Fluid Lymphocytes % 74 Fluid Eosinophils % 4 Fluid [place] % 6 Fluid Slide Review Pleural Fluid Source RIGHT LUNG Pleural Color YELLOW Pleural Appearance CLOUDY Pleural pH 7.42 H Pleural WBC 799 Pleural RBC < 3000 Pleural Other Cells Not Reportable Pleural Total Protein 4.1 Pleural LDH 134 Pleural Glucose 168 Medications Administered Current Inpatient Medications Acetaminophen (Tylenol) 1,000 mg PO TID [facility] Stop: 07/24/19 20:59 Last Admin: 06/26/19 14:45 Dose: 1,000 mg Documented by: Amlodipine Besylate (Norvasc) 5 mg PO QAM [facility] Stop: 07/25/19 08:59 Last Admin: 06/26/19 08:10 Dose: 5 mg Documented by: Bisacodyl (Dulcolax) 10 mg [place] DAILY PRN PRN Reason: Constipation Stop: 07/25/19 16:13 Last Admin: 06/25/19 16:39 Dose: 10 mg Documented by: Escitalopram Oxalate (Lexapro Tab) 10 mg PO DAILY [facility] Stop: 07/25/19 08:59 Last Admin: 06/26/19 08:09 Dose: 10 mg Documented by: Heparin Sodium (Porcine) (Heparin Sodium (Porcine)) 5,000 units SQ Q12 [facility] Stop: 07/24/19 20:59 Last Admin: 06/26/19 08:12 Dose: 5,000 units Documented by: Insulin Aspart (Novolog Flexpen) 0 units SC ACHS [facility] Stop: 07/26/19 16:29 Levothyroxine Sodium (Synthroid) 75 mcg PO DAILYBB [facility] Stop: 07/25/19 06:29 Last Admin: 06/26/19 05:11 Dose: 75 mcg Documented by: Lidocaine (Lidoderm 5%) [facility] Stop: 07/25/19 16:29 Last Admin: 06/26/19 08:09 Dose: 1 patch Documented by: Lisinopril (Zestril) 20 [facility] [place] Stop: 07/25/19 08:59 Last Admin: 06/26/19 08:10 Dose: 20 mg Documented by: Magnesium Chloride (Slow-Mag) 128 mg PO BID [facility] Stop: 07/24/19 21:14 Last Admin: 06/26/19 08:11 Dose: 128 mg Documented by: Miscellaneous (Remove Lidoderm Patch) 1 ea N/A DAILY@2100 [facility] Stop: 07/25/19 20:59 Last Admin: 06/25/19 21:00 Dose: Not Given Documented by: Multivitamins (Multivitamin Tab) 1 tab PO [facility] Stop: 07/25/19 08:59 Last Admin: 06/26/19 08:37 Dose: 1 tab Documented by: Ondansetron HCl (Zofran) 4 mg IV Q4H PRN PRN Reason: Nausea Stop: 07/24/19 23:15 Oxycodone HCl (Roxicodone Immediate Rel) 5 mg PO Q4H PRN PRN Reason: Severe Pain Stop: 07/08/19 23:14 Last Admin: 06/26/19 05:11 Dose: 5 mg Documented by: Polyethylene Glycol (Miralax Powder Packet) 17 gm PO DAILY PRN PRN Reason: Constipation Stop: 07/25/19 16:13 Prednisone (Prednisone) 15 mg PO QAM [facility] Stop: 07/25/19 08:59 Last Admin: 06/26/19 08:10 Dose: 15 mg Documented by: PG Care Time/CCT Total # of Minutes Spent Total Time Spent with Patient: Total time spent is greater than 50% in coord ination of care (as documented) at patient's floor/unit and/or counseling patient: Coding Level of Care Code 87005 Subseq Hosp Care Lvl 3 Diagnoses Pleural effusion J90 Failure to thrive R62.7 Failure to thrive age range: in adult Syncope R55 Syncope type: unspecified Fear of falling F40.298 Recurrent falls R29.6 Neck pain M54.2 Myalgia M79.10 RUQ abdominal pain R10.11 Closed rib fracture S22.41XA Encounter type: initial encounter Laterality: right Rib fracture type: multiple ribs Acute UTI N39.0 Depression F32.9 Hypothyroidism E03.9 Hypertension I10 Hypertension type: unspecified Carcinoma of central portion of left breast in female, estrogen receptor negative C50.112; Z17.1 Hypomagnesemia E83.42 CKD (chronic kidney disease) stage 3, GFR 30-59 ml/min N18.3 DVT prophylaxis Z29.9 Discharge planning issues Z02.9 (1) Closed rib fracture Encounter type: initial encounter Laterality: right Rib fracture type: multiple ribs Qualified Code(s): S22.41XA - Multiple fractures of ribs, right side, initial encounter for closed fracture (2) Failure to thrive Failure to thrive age range: in adult Qualified Code(s): R62.7 - Adult failure to thrive (3) Syncope Syncope type: unspecified Qualified Code(s): R55 - Syncope and collapse (4) Hypertension Hypertension type: unspecified Qualified Code(s): I10 - Essential (primary) hypertension
[2019-06-26] MEDS: INSULIN ASPART 100 UNITS/ML 3 ML PEN SC SCH ×2 (17:27→20:07)
[2019-06-27] MEDS: OXYCODONE HCL IR 5 MG TAB (IMMEDIATE RELEASE) PO PRN (06:10)
[2019-06-27] MEDS: LEVOTHYROXINE SODIUM 75 MCG TABLET PO SCH (06:11)
[2019-06-27 06:14] LABS: Hematocrit (blood only) 31.5 % (37-47); Hemoglobin 10.8 g/dL (12.0-16.0); Mean Corpuscular Hgb Conc 34.3 g/dL (32-36); Mean Corpuscular Volume 96.3 fL (80-100); Mean Platelet Volume 8.4 fL (7.4-10.4); Platelet Count 682 K/uL (130-400); RDW Coefficient of Variation 13.3 % (11.5-14.5); RDW Standard Deviation 46.5 fL (36.4-46.3); Red Blood Count 3.27 M/uL (4.2-5.4); White Blood Count 13.21 K/uL (4.8-10.8)
[2019-06-27] MEDS: MULTIVITAMIN TAB PO SCH (08:31)
[2019-06-27] MEDS: MAGNESIUM CHLORIDE 64MG DELAYED REL TAB PO SCH (08:31)
[2019-06-27] MEDS: ESCITALOPRAM OXALATE 10 MG TAB PO SCH (08:32)
[2019-06-27] MEDS: AMLODIPINE BESYLATE 5 MG TAB PO SCH (08:32)
[2019-06-27] MEDS: predniSONE 5 MG TAB PO SCH (08:32)
[2019-06-27] MEDS: lisinopriL 20 MG TAB PO SCH (08:32)
[2019-06-27] MEDS: ACETAMINOPHEN 500 MG TAB PO SCH ×2 (08:33→14:54)
[2019-06-27] MEDS: LIDOCAINE 5% 1 PATCH TD SCH (08:33)
[2019-06-27] MEDS: HEPARIN SOD 5,000 UNIT/0.5 ML VIAL SQ SCH (08:34)
[2019-06-27] MEDS: INSULIN ASPART 100 UNITS/ML 3 ML PEN SC SCH ×2 (08:37→12:30)
--- NOTE | 2019-06-27 09:20 | Pulmonology Progress Note ---
Date of Service June 27, 2019 Assessment & Plan (1) Pleural effusion, right: Impression: 83-year-old female with remote history of breast cancer and very remote history of colon cancer presenting now with pleural effusion and failure to thrive. Fluid is lymphocytic exudate and preliminary report from cytology indicates malignant cells present, favor breast but awaiting additional immunohistochemical analysis. Recommendation: 1. Malignant pleural effusion: The patient is relatively asymptomatic currently. No additional pleural procedures are anticipated currently. She is established with Dr. Mandujano in the outpatient setting and should follow-up with him within 1 to 2 weeks of discharge to discuss additional imaging studies, staging, and long-term treatment. I advised the patient that the effusion certainly could reaccumulate. Options at that point time would include serial t horacentesis, pleurodesis, or Pleurx catheter placement. She is taking it under advisement. From a pulmonary perspective, the patient can be discharged with outpatient follow-up with medical oncology. Feel free to contact us if we can be of additional assistance. Admission and Anticipated Discharge Date Admission Date: June 25, 2019 Subjective Patient seen and examined. EMR reviewed. Patient reports some slight discomfort at the site of her thoracentesis. Her breathing is about the same. No cough or sputum production. No palpitations. No significant lower extremity edema Review of Systems Review of Systems: Unchanged from prior Physical Exam Physical Exam: GENERAL : No acute distress EYES: No icterus, gaze conjugate NOSE: No evidence of epistaxis MOUTH: No lesions or candidiasis NECK: Supple LUNGS: CTA B/L, no wheezes, rales or rhonchi. Decreased breath sounds at the right base. No dyspnea with full sentences. No use of accessory muscles HEART: Regular, rate controlled ABDOMEN: Soft, NT, ND, BS Present EXTREMITIES: No LE edema, pedal pulses intact NEURO: A&OX3 Results & Data Results & Data ([facility]) Vital Signs (Past 12 Hours) Vital Signs Temp Pulse Resp BP Pulse Ox 06/27/19 07:07 37.1 C 67 20 166/69 H 92 06/26/19 23:00 36.9 C 70 18 138/49 L 96 Laboratory Results 06/27/19 05:36 06/25/19 05:46 Pleural fluid analysis: pH 7.42 Differential: 60% neutrophils, 74% lymphocytes, 4% eosinophils, and 6% monocytes LDH 134 Total protein 4.1 Glucose 168 Cytology: Discussed with pathology and PA: Malignant cells present. Await immunohistochemical analysis for differentiation. Diagnostic Findings Post procedure chest x-ray was reviewed. There is linear atelectasis at the right lung base with trivial residual pleural fluid. No pneumothorax. PG Care Time/CCT Total # of Minutes Spent Total Time Spent with Patient: Total time spent is greater than 50% in coordination of care (as documented) at patient's floor/unit and/or counseling patient: Coding Level of Care Code 14127 Subseq Hosp Care Lvl 3 Diagnoses Pleural effusion, right J90 Time Spent (min) 40
--- NOTE | 2019-06-27 11:53 | Discharge Summary ---
Date of Service June 27, 2019 Admission HPI Per Admitting Provider Key Hudson is an 83 year old female with history of right and more recently left sided breast cancer presents to the ER with progressive weakness and falling. She reports her symptoms started in March initially with proximal muscle weakness in her thighs as she felt she was unable to get up from her chair. She reported no problems with weakness prior to this and came on relatively abruptly. Although prior chart review of both PCP and oncology notes appear to suggest her pain and fatigue have been relatively longstanding. Her first fall she reports was in April while waiting in line at a restaurant she tried to steady herself by placing her hand on something which subsequently moved and she fell down. She fell again in May after falling back from opening the dryer which was described in her PCP visit the same month. She was seen in the ER earlier this month for that May fall but persistent pain and was discharged with advice to take oxycodone and Percocet that she already had at home for pain. Unfortunately these were not effective and she was prescribed gabapentin by her PCP last week. She thinks this caused her to be more unsteady and caused her to lose consciousness on two occasions last week on and Monday after taking the medication. She remembers going down and waking up on the floor and was able to call her friend to help her back up. She comes to the ER today on the advice of her friend. Principal Diagnosis Malignant right pleural effusion, metastatic breast cancer Discharge Exam Constitutional well developed and + thin; no acute distress Eyes PERRL, conjunctivae normal, anicteric sclerae ENMT external ear and nose normal, oropharynx normal Neck trachea midline, no thyromegaly Respiratory normal respiratory effort; no respiratory distress and no cough Auscultation: lungs clear to auscultation bilaterally; no rhonchi and no wheezes Cardiovascular RRR, no murmur, no edema Gastrointestinal (Abdomen) normal bowel sounds, soft, nontender, no hepatosplenomegaly Musculoskeletal Head/Neck/Chest: normocephalic and head atraumatic Extremities: extremities normal to inspection and + abnormal strength (generalized weakness) Skin no rashes, warm and dry Neurologic patellar DTR's 2+ bilat, sensation intact and PERRL, EOMI, accommodation nl, no face palsy, no dysarthria Psychiatric A+Ox3, euthymic affect Lymphatic no cervical or axillary lymphadenopathy Discharge Data Allergies Allergy/AdvReac Type Severity Reaction Status Date / Time atorvastatin Allergy muscle Verified 06/24/19 14:24 aches. raloxifene [From Evista] Allergy Unknown Verified 06/24/19 23:09 risedronate sodium Allergy Unknown Verified 06/24/19 23:09 [From Actonel] sulfamethoxazole AdvReac Intermediate Rash Verified 06/24/19 14:24 [From Bactrim] trimethoprim [From Bactrim] AdvReac Intermediate Rash Verified 06/24/19 14:24 tramadol AdvReac Nausea Verified 06/24/19 23:09 Consultations 06/24/19 15:47 ED Decision to Admit Stat 06/24/19 17:43 Consult Case Management - Discharge Planning Routine 06/26/19 09:48 Consult Pulmonology Routine Ordered Studies 06/24/19 13:30 CT cervical spine wo con Stat CT head/brain wo con Stat 06/24/19 14:31 CT angio chest PE protocol Stat 06/26/19 09:55 US point of care ultrasound Routine Hospital Course (1) Pleural effusion: Concerning for malignant effusion given recent history of breast cancer and loss of appetite and weight loss thoracentesis on 06/25 with pulmonology 400cc out, appears exudative with pleural protein > 50% serum protein cytology shows malignant cells, favoring breast origin, final markers still pending recommend follow up with Dr. Mandujano in two weeks to discuss options / recommendations (2) Failure to thrive: -improvement on steroids as well as aches and proximal weakness does all plead heavily to possible PMR - certainly metastatic breast cancer is contributing to weight loss -High likelihood of depression/anxiety component and recently started on Lexapro (see below). 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 Suspect neurally-mediated reflex syncope. Patient reports correlation with starting gabapentin and these falls therefore will avoid this in the future. no arrhythmia noted, suspect related to weakness PT/OT says patient okay for discharge, will d/c to home with home health unfortunately she lives alone, has some friends that check on her encouraged her to get a life alert button in case she falls and does not have her phone (4) Fear of falling: PT/OT virgilio. did better than expected, [facility]ello cannot take patient, will go home with home health (5) Recurrent falls: see above (6) Neck pain: Most likely MSK from recent falls. CT cervical spine reassuring having pain today, does admit that overall better with steroids so possible PMR component (7) Myalgia: improvement on prednisone underscores high prob of PMR again, ideally would be referred to rheumatology but could be difficult (8) RUQ abdominal pain: seems to be referred from ribs (9) Closed rib fracture: Non-acute. Acetaminophen 1000mg TID. lidocaine patch CT does mention that a small focus of metastatic disease cannot be ruled out, certainly with malignant effusion it makes a bone metastasis more likely prescribed oxycodone for pain (10) Acute UTI: no urinary sx besides chronic incontinence --> stop abx. (11) Depression: Continue Lexapro 10mg PO daily. Since this was increased in April could consider increasing to 20mg, for now continue at home dosing (12) Hypothyroidism: TSH 0.9. Continue levothyroxine 75 mcg PO daily. (13) Hypertension: Continue lisinopril 20mg PO daily. Will d/c HCTZ given reduced renal function and start amlodipine 5mg PO daily. tolerating well, continue on discharge (14) Carcinoma of central portion of left breast in female, estrogen receptor negative: s/p mastectomy in January 2018. She was advised to have adjuvant chemotherapy but declined. now with malignant right pleural effusion, breast cancer cells seen (15) Hypomagnesemia: Slow-Mg 128 mg BID (16) CKD (chronic kidney disease) stage 3, GFR 30-59 ml/min: Avoid NSAIDs. Stopped HCTZ as above and switch to amlodipine for BP. (17) DVT prophylaxis: Heparin 5000 units Q12H (18) Discharge planning issues: home with home health Total Time Total Time Spent Total Time Spent (In Minutes): 35 minutes Total Time Includes: Examination of the Patient, Discharge Planning, Medication Reconciliation and Communication With Other Providers (Dr. Stewart) Discharge Plan Discharge Items Patient Disposition: Home - Home Health Services Reason For Visit: PROGRESSIVE WEAKNESS,FALLING Discharge Diagnosis: Malignant right pleural effusion, breast cancer Possible polymyalgia rheumatica Weakness and falls Condition on Discharge: Fair Goals: improve strength and mobility improve nutrition, eat a lot of protein, use supplements such as Boost / Ensure follow up with Dr. Mandujano in 2 weeks Activity: Resume your previous activity Driving/Machine Use: no driving Weightbearing: Full weightbearing Non-emergency contact: Primary Care Provider and Oncologist Call non-emergency contact if: you have any medication questions, your symptoms worsen and you have a fever Follow-up/Referrals: Mayra Swanson DO [Primary Care Provider] - (one week, can be phone call follow up) Hermelindo Mandujano DO [Physician] - (needs seen in 2 weeks in the office, breast cancer now metastatic, right pleural effusion) Diet: Regular Addtl Attending Provider Instructions: Medications: note the changes / new medications below - AMLODIPINE: new blood pressure medication, added during stay, you have been tolerating well, take 5mg daily - LISINOPRIL: 20mg daily, this replaces the combination pill you were taking (stop the Lisinopril/HCTZ pill) - OXYCODONE: use as needed for pain with the ribs, neck, back - PREDNISONE: 15mg daily, continue this dose for now as we are treating possible PMR (see below) - SLOW MAG: take twice a day for magnesium replacement due to low magnesium levels Right malignant pleural effusion thoracentesis on 06/[address] Stewart, analysis shows malignant cells, favor breast in origin, final markers still pending the effusion could recur in the future, there would be several options for managing this, can be referred back to Dr. Stewart in the office if it recurs please follow up with Dr. Mandujano in 2 weeks to discuss final analysis of malignant cells and treatment options you NEED to try to increase your caloric intake, add dietary supplements such as Boost or Ensure three times a day with meals or in between meals Falls at home, weakness, failure to thrive, weight loss now with diagnosis of malignant effusion, the weight loss most likely due to metastatic cancer as above, need to improve oral intake of protein home health and home therapy will be arranged recommend that you get a life alert button to wear in case you fall and do not have your phone Muscle pain (myalgia) in neck, shoulders, back could be polymyalgia rheumatica, started on Prednisone 15mg daily with decent response thus far will continue with this dose for now, subsequently it should help your appetite the dose will need to be tapered and ideally you would need to see a user interface designer, this could be difficult given the Coronavirus situation recommend following up with Dr. Swanson in one week to assess muscle pain on the Prednisone Pending Studies at Discharge: No Stand-Alone Forms: [facility], [facility], Smoking Cessation Medications and DC Order Prescriptions: New lisinopril 20 mg Tablet 20 mg PO QAM 30 Days Qty: 30 RF: 3 amlodipine [Norvasc] 5 mg Tablet 5 mg PO QAM 30 Days Qty: 30 RF: 3 oxycodone 5 mg Tablet 5 mg PO Q4H PRN (Reason: pain) 20 Days Qty: 30 RF: 0 prednisone 5 mg Tablet 15 mg PO QAM 30 Days Qty: 90 RF: 0 magnesium chloride [Mag 64] 64 mg Tablet,Delayed Release (Dr/Ec) 128 mg PO BID 30 Days Qty: 120 RF: 3 Continued diclofenac sodium 1 % gel 2 gm TOP QID Qty: 100 RF: 1 omega-3 acid ethyl esters 1 gram capsule 1 cap PO BID RF: 0 cholecalciferol (vitamin D3) [Vitamin D3] 25 mcg (1,000 unit) capsule 2,000 units PO WEEKLY RF: 0 metformin 500 mg tablet 500 mg PO BID Qty: 180 RF: 3 escitalopram oxalate 10 mg tablet 10 mg PO DAILY Qty: 90 RF: 1 levothyroxine 75 mcg tablet 75 mcg PO QAM Qty: 90 RF: 1 multivitamin Capsule 1 cap PO QAM RF: 0 cyanocobalamin (vitamin B-12) 500 mcg tablet 500 mcg PO 2XWK RF: 0 Essential Woman 50+ 0.4-250 mg-mcg Tablet 2 tab PO AMPM RF: 0 Discontinued lisinopril-hydrochlorothiazide 20-25 mg tablet 1 tab PO QAM Qty: 30 RF: 0 Discharge Orders: Discharge Order (Routine); Ordered 06/27/19 Ordered By: Julio Farrell Admission Data Admit Date/Time: 06/25/19 17:51 Attending Provider: Julio Farrell Admit Provider: Micky Hull Primary Care Provider: Mayra Swanson Other Providers: Micky Hull ; Zack Stewart Other Interventions: Discharge Summary Assessment (RN) Last Done: 06/27/19 14:00 Coding Level of Care Code D/C Day Management >30 mins Diagnoses Pleural effusion J90 Failure to thrive R62.7 Failure to thrive age range: in adult Syncope R55 Syncope type: unspecified Fear of falling F40.298 Recurrent falls R29.6 Neck pain M54.2 Myalgia M79.10 RUQ abdominal pain R10.11 Closed rib fracture S22.41XA Encounter type: initial encounter Laterality: right Rib fracture type: multiple ribs Acute UTI N39.0 Depression F32.9 Hypothyroidism E03.9 Hypertension I10 Hypertension type: unspecified Carcinoma of central portion of left breast in female, estrogen receptor negative C50.112; Z17.1 Hypomagnesemia E83.42 CKD (chronic kidney disease) stage 3, GFR 30-59 ml/min N18.3 DVT prophylaxis Z29.9 Discharge planning issues Z02.9
== END 2019-06-27 15:00 | disposition home health service (06) | DRG 598 ==
LOC: 2N 13:08 → ED 13:08 → SUATTDRO 16:36 → 2N 17:26 → SUATTDRO 06-25 17:51